=== PATIENT | female | born 1975 | race Two or more races ===

== ENCOUNTER 2019-08-01 07:34 | Day surgery (SDC) | payer MEDICAID ==
[~2019-08-01] VITALS: Ht 160 cm; Wt 98.9 kg
[2019-08-01] MEDS ORDERED: LACTATED RINGERS 1,000 ML IV SCH (09:15)
[2019-08-01 09:17] LABS: BASOPHILS % 0.4 % (0.0-2.0); EOSINOPHILS % 1.2 % (0.0-5.0); HEMATOCRIT. 37.5 % (36.0-48.0); HEMOGLOBIN. 12.3 g/dL (12.0-16.0); LYMPHOCYTES % 30.1 % (20.0-50.0); MEAN CORPUSCULAR HEMOGLOBIN 27.2 pg (28.0-32.0); MEAN CORPUSCULAR VOLUME 83.2 fL (81.0-99.0); MONOCYTES % 6.5 % (2.0-8.0); NEUTROPHILS % 61.8 % (40.0-76.0); PLATELET 403 x1000/uL (130-400); RED CELL DISTRIBUTION WIDTH 14.1 % (11.6-14.6)
[2019-08-01 09:20] LABS: CLARITY URINE CLEAR (CLEAR); COLOR URINE YELLOW (YELLOW); KETONES URINE NEGATIVE (NEGATIVE); LEUKOCYTE ESTERASE URINE NEGATIVE (NEGATIVE); NITRITE URINE NEGATIVE (NEGATIVE); OCCULT BLOOD URINE NEGATIVE (NEGATIVE); PH URINE 5.5 (4.5-8.0); PROTEIN URINE NEGATIVE (NEGATIVE); SPECIFIC GRAVITY URINE 1.023 (1.005-1.030); UROBILINOGEN URINE 0.2 E.U./dL (0.2-1.0)
[2019-08-01 09:23] LABS: CHLORIDE 104 mEq/L (98-107)
[2019-08-01 09:25] LABS: UCG SCREEN NEGATIVE
[2019-08-01 09:26] LABS: INR 0.9; PARTIAL THROMBOPLASTIN TIME 23.9 sec (23.4-31.0); PROTHROMBIN TIME 10.1 sec (9.6-11.0)
[2019-08-01] MEDS ORDERED: BUPIVACAINE HCL/PF 0.5% (5MG/ML) 10ML ONE (09:32)
[2019-08-01] MEDS ORDERED: VASOPRESSIN 20 UNIT/ML 1ML ONE (12:04)
[2019-08-01] MEDS ORDERED: NEOSTIGMINE METHYLSULFATE 1MG/ML 10 ML VIAL ONE (12:37)
[2019-08-01] MEDS ORDERED: FENTANYL CITRATE/PF 50MCG/ML 2ML VIAL ONE (12:37)
[2019-08-01] MEDS ORDERED: ROCURONIUM BROMIDE 10MG/ML VIAL 5ML IV ONE (12:37)
[2019-08-01] MEDS ORDERED: PROPOFOL 200MG/20ML VIAL IV ONE (12:37)
[2019-08-01] MEDS ORDERED: MIDAZOLAM HCL 2 MG/2 ML VIAL ONE (12:38)
[2019-08-01] MEDS ORDERED: GLYCOPYRROLATE 0.2 MG/ML 2ML VIAL ONE ×2 (12:38→16:10)
[2019-08-01] MEDS ORDERED: DEXAMETHASONE 4MG/ML 1ML VIAL ONE (12:40)
[2019-08-01] MEDS ORDERED: ONDANSETRON HCL 4MG/2ML INJ ONE (12:40)
[2019-08-01] MEDS ORDERED: BUPIVACAINE HCL ONE (12:55)
[2019-08-01] MEDS ORDERED: SKIN ADHESIVE 0.7 GM EA TOP ONE (12:56)
[2019-08-01] MEDS ORDERED: HYDROMORPHONE HCL/PF 2MG/ML (OR) ONE (13:32)
[2019-08-01] MEDS ORDERED: METF-416 PO (13:33)
[2019-08-01] MEDS ORDERED: FLUT1DIS3 IH (13:33)
[2019-08-01] MEDS ORDERED: FLOV44 IH (13:33)
[2019-08-01] MEDS ORDERED: P20 PO (13:33)
[2019-08-01] MEDS ORDERED: ALBU90AE IH (13:33)
[2019-08-01] MEDS ORDERED: METH2.5T PO (13:33)
[2019-08-01] MEDS ORDERED: FERR325T6 PO (13:33)
[2019-08-01] MEDS ORDERED: ONDANSETRON HCL 4MG/2ML INJ IV PRN ×4 (13:45→20:00)
[2019-08-01] MEDS ORDERED: LABETALOL 5MG/ML SYR 20 MG/4 ML SYRINGE IV PRN (13:45)
[2019-08-01] MEDS ORDERED: HYDROMORPHONE HCL/PF 2MG/ML CPJ IV PRN (16:30)
[2019-08-01] MEDS ORDERED: SODIUM CHLORIDE 0.9% 1,000 ML IV ONE (16:30)
[2019-08-01] MEDS ORDERED: MORPHINE SULFATE 2 MG/ML CPJ (NOT FOR IM USE) IV PRN (16:30)
[2019-08-01] MEDS ORDERED: MEPERIDINE HCL/PF 25MG/ML CPJ IV PRN ×2 (16:30)
[2019-08-01] MEDS: HYDROMORPHONE HCL/PF 2MG/ML CPJ IV PRN ×4 (16:53→18:29)
[2019-08-01] MEDS: MEPERIDINE HCL/PF 25MG/ML CPJ IV PRN ×2 (17:35→17:59)
[2019-08-01 18:29] VITALS: BP 122/67
== END 2019-08-01 20:15 | disposition home or self-care (01) ==
LOC: OR 07:34
PROVIDERS: ATTEND Obstetrics & Gynecology
DX: N93.9 Abnormal uterine and vaginal bleeding, unspecified (principal); N80.0 Endometriosis of uterus; E11.9 Type 2 diabetes mellitus without complications; D86.0 Sarcoidosis of lung; N72 Inflammatory disease of cervix uteri; J45.909 Unspecified asthma, uncomplicated; I50.9 Heart failure, unspecified; E78.5 Hyperlipidemia, unspecified; G47.33 Obstructive sleep apnea (adult) (pediatric); E66.01 Morbid (severe) obesity due to excess calories; Z79.84 Long term (current) use of oral hypoglycemic drugs; Z79.899 Other long term (current) drug therapy; Z98.51 Tubal ligation status; Z98.890 Other specified postprocedural states; Z68.41 Body mass index [BMI] 40.0-44.9, adult
CPT/HCPCS: 36415; 58552; 71045; 80048; 81003; 81025; 82962; 85025; 85610; 85730; 86850; 86900; 86901; 88307; 93005; J1100; J1170; J2175; J2250; J2405; J2704; J2710; J3010; J3490; S2900